=== PATIENT | female | born 1990 | race Hispanic/Latino ===

== ENCOUNTER → 2023-07-08 | Emergency (ER) | payer OTHER ==
[~2023-07-08] MED LIST: FAMOTIDINE 20 MG/2 ML VIAL IV ONE; NA CHLORIDE 0.9% 1,000 ML ONE; ONDANSETRON 4 MG/2 ML VIAL ONE
[2023-07-08 16:12] LABS: Absolute Basophils 0.1 K/uL (0-0.5); Absolute Lymphocytes (CBC) 1.5 K/uL (0.7-4.9); Absolute Neutrophil 18.3 K/uL (1.8-8.0); Basophils % 0.3 % (0-1.3); Hematocrit 45.1 % (36.0-45.0); Hemoglobin 14.8 g/dL (12.0-15.0); Lymphocytes % 7.2 % (15.3-44.8); MCH 29.3 pg (27.0-35.0); MCHC 32.9 g/dL (32.0-36.0); MCV 89.1 fL (80-100); MPV 8.6 fL (7.6-11.3); Monocytes % 4.6 % (3.3-12.3); Neutrophils % 87.9 % (41.7-73.7); Platelets 366 thou/uL (152-406); RBC Red Blood Cell Count 5.06 M/uL (3.86-4.86); Red Cell Distribution Width 13.1 % (12.1-15.2)
[2023-07-08 16:23] LABS: SARS-CoV-2 Antigen CONTROL BLUE LINE VIS/BG OK; SARS-CoV-2 Antigen Rapid Res Negative (Negative)
[2023-07-08 16:28] LABS: Albumin 4.1 g/dL (3.4-5.0); Bilirubin Total 0.4 mg/dL (0.2-1.0); Globulin 4.1 g/dL (2.3-3.5); Protein, Total 8.2 g/dL (6.4-8.2)
--- NOTE | 2023-07-08 17:49 | RAD REPORT ---
EXAM DESCRIPTION: CTAbdomen Pelvis W Contrast - 07/08/2023 5:38 pm CLINICAL HISTORY: ABD PAIN COMPARISON: No comparisons TECHNIQUE: CT of the abdomen and pelvis was performed. All CT scans are performed using dose optimization technique as appropriate and may include automated exposure control or mA/KV adjustment according to patient size. FINDINGS: Lower chest: Small hiatal hernia. Liver: No acute abnormality or suspicious lesions. Biliary: No biliary ductal dilatation. Stomach: No significant focal abnormality. Duodenum: No significant focal abnormality. Pancreas: No significant abnormality. Spleen: No significant abnormality. Adrenal: No suspicious lesions. Kidney/ureter: No hydronephrosis. No renal calculi. Retroperitoneum: No retroperitoneal adenopathy. Vascular: No aneurysm. Bowel: No significant focal abnormality. Normal appendix. Peritoneum: Trace pelvic free fluid. This is likely physiologic. Mild soft tissue thickening at the u mbilicus. Bladder: Grossly unremarkable. Reproductive: Corpus luteal cyst in the right ovary. Bones: No acute fracture. Other: n/a IMPRESSION: No acute intra-abdominal or pelvic finding.
[2023-07-08 18:24] LABS: Sqamous Epithelial <5 /HPF (None Seen); Urine Bacteria None Seen /HPF (<20); Urine Bilirubin NEGATIVE (Negative); Urine Blood Negative (Negative); Urine Clarity Clear (Clear); Urine Color Colorless (Yellow); Urine Culture Reflex Order NOT NEEDED; Urine Glucose NEGATIVE (Negative); Urine Ketones TRACE (Negative); Urine Microscopic Reflex YN ORDER UMIC; Urine Mucus Slight /HPF (None Seen); Urine Nitrite NEGATIVE (Negative); Urine Protein NEGATIVE (Negative); Urine Urobilinogen Normal (Normal); Urine WBC <5 /HPF (<5); Urine Yeast (Budding) Trace /HPF (None Seen); Urine pH 5.5 (5.0-7.0)
[2023-07-08 18:30] LABS: Specific Gravity > 1.030 (1.005-1.030)
--- NOTE | 2023-07-08 18:36 | EDPHYS ---
Physician Documentation [facility] Name: Janis Ortiz Age: 32 yrs Sex: Female : 1990 Arrival Date: 07/08/2023 Time: 15:32 Bed 5 Private MD: ED Physician Marvin Holbrook HPI: 07/07 15:41 This 32 yrs old Female presents to ER via Wheelchair with complaints of jh7 Vomiting. 15:41 The patient presents to the emergency department with nausea, vomiting. Onset: The jh7 symptoms/episode began/occurred 1 day(s) ago. Possible causes: CBD Gummies. Associated signs and symptoms: Pertinent positives: diarrhea, nausea, vomiting, Pertinent negatives: abdominal pain, constipation, hematuria, vaginal discharge. no PMH. Historical: - Allergies: 15:43 No Known Allergies; ko1 - Home Meds: 15:43 None [Active]; ko1 - PMHx: 15:43 None; ko1 - PSHx: 15:43 None; ko1 - Immunization history:: Adult Immunizations unknown. - Social history:: Smoking status: Patient denies any tobacco usage or history of. ROS: 15:41 Constitutional: Negative for fever, chills, and weight loss, Eyes: Negative for injury, jh7 pain, redness, and discharge, Neck: Negative for injury, pain, and swelling, Cardiovascular: Negative for chest pain, palpitations, and edema, Respiratory: Negative for shortness of breath, cough, wheezing, and pleuritic chest pain, Back: Negative for injury and pain, MS/Extremity: Negative for injury and deformity, Skin: Negative for injury, rash, and discoloration, Neuro: Negative for headache, weakness, numbness, tingling, and seizure, 15:41 Abdomen/GI: Positive for nausea, vomiting, and diarrhea, Negative for abdominal pain, black/tarry stool, rectal pain, 15:41 All other systems are negative, Exam: 15:41 Head/Face: Normocephalic, atraumatic. Eyes: Pupils equal round and reactive to light, jh7 extra-ocular motions intact. Lids and lashes normal. Conjunctiva and sclera are non-icteric and not injected. Cornea within normal limits. Periorbital areas with no swelling, redness, or edema. Neck: Trachea midline, no thyromegaly or masses palpated, and no cervical lymphadenopathy. Supple, full range of motion without nuchal rigidity, or vertebral point tenderness. No Meningismus. Cardiovascular: Regular rate and rhythm with a normal S1 and S2. No gallops, murmurs, or rubs. Normal PMI, no JVD. No pulse deficits. Respiratory: Lungs have equal breath sounds bilaterally, clear to auscultation and percussion. No rales, rhonchi or wheezes noted. No increased work of breathing, no retractions or nasal flaring. Abdomen/GI: Soft, non-tender, with normal bowel sounds. No distension or tympany. No guarding or rebound. No evidence of tenderness throughout. Back: No spinal tenderness. No costovertebral tenderness. Full range of motion. MS/ Extremity: Pulses equal, no cyanosis. Neurovascular intact. Full, normal range of motion. Neuro: Awake and alert, GCS 15, oriented to person, place, time, and situation. Motor strength 5/5 in all extremities. Sensory grossly intact. Normal gait. 15:41 Constitutional: The patient appears alert, awake, obviously ill, 15:41 Skin: Appearance: Color: pale, Vital Signs: 15:41 BP 102 / 58; Pulse 129; Resp 17; Temp 97.3; Pulse Ox 98% on R/A; ko1 16:06 BP 109 / 65; Pulse 111; Resp 16; Pulse Ox 95% on R/A; nj1 17:02 BP 110 / 58; Pulse 103; Resp 16; Pulse Ox 97% on R/A; nj1 19:21 BP 121 / 64; Pulse 104; Resp 18; Temp 97.5(TE); Pulse Ox 98% on R/A; Pain 0/10; tm6 19:21 Pain Scale: Adult tm6 MDM: 15:37 Patient medically screened. [facility] 18:37 Differential diagnosis: Nonspecific abd pain, gastritis, cholecystitis, appendicitis, jh7 diverticulitis, viral gastroenteritis, gastroenteritis. Data reviewed: vital signs, nurses notes, lab test result(s), radiologic studies, CT scan. Consideration of Admission/Observation Escalation of care including admission/observation considered. Management of patient was discussed with the following: Attending ED physician, Marvin Holbrook. I considered the following discharge prescriptions or medication management in the emergency department Medications were administered in the Emergency Department. See MAR. Historians other than the Patient: Spouse/Significant Other: . Counseling: I had a detailed discussion with the patient and/or guardian regarding the historical points, exam findings, and any diagnostic results supporting the discharge/admit diagnosis, to return to the emergency department if symptoms worsen or persist or if there are any questions or concerns that arise at home. Response to treatment: the patient's symptoms have mildly improved after treatment. ED course: Reviewed all labs and imaging with the patient. She denied any abdominal pain or urinary symptoms. Elevated WBC count likely due to the numerous episodes of vomiting. The patient symptoms mildly improved and she did not vomit throughout her ER stay. Considered admitting under observation for IV fluid therapy, but the patient stated that she felt comfortable going home and would return if symptoms worsened.. 07/07 15:46 Order name: CBC with Diff [facility] 07/07 15:46 Order name: CMP; Complete Time: 17:04 [facility] 07/07 15:46 Order name: Lipase; Complete Time: 17:04 [facility] 07/07 15:46 Order name: Urinalysis w/ reflexes; Complete Time: 18:32 [facility] 07/07 15:47 Order name: Flu; Complete Time: 17:04 [facility] 07/07 15:47 Order name: SARS RAPID; Complete Time: 16:24 [facility] 07/07 16:44 Order name: Test, Serum; Complete Time: 17:28 07/07 19:05 Order name: CBC Smear Scan [facility] 07/07 16:16 Order name: CT Abd/Pelvis - IV Contrast Only; Complete Time: 17:52 [facility] 07/07 15:46 Order name: IV Saline Lock; Complete Time: 16:00 [facility] 07/07 15:46 Order name: Labs collected and sent; Complete Time: 16:00 [facility] 07/07 18:30 Order name: PO challenge; Complete Time: 19:21 [facility] Administered Medications: 15:58 Drug: NS 0.9% IV 1000 ml IV at 1 bolus Per protocol; 1000 mL bolus Route: IV; Rate: 1 nj1 bolus; Site: right antecubital; 15:59 Drug: Ondansetron IVP 4 mg IVP once; over 2 minutes Route: IVP; Site: right antecubital;nj1 16:01 Drug: Famotidine IVP 20 mg IVP once; dilute with 10 mL 0.9% NaCl; give over 2 minutes nj1 Route: IVP; Site: right antecubital; 18:20 Drug: Ondansetron IVP 4 mg IVP once; over 2 minutes Route: IVP; Site: right antecubital;nj1 Disposition Summary: 07/08/23 18:35 Discharge Ordered Notes: Location: Home [facility] Problem: new [facility] Symptoms: have improved [facility] Condition: Stable [facility] Diagnosis - Nausea with vomiting, unspecified [facility] - Diarrhea, unspecified [facility] - Dehydration [facility] Followup: [facility] - With: Private Physician - When: 2 - 3 days - Reason: Recheck today's complaints Discharge Instructions: - Discharge Summary Sheet [facility] - Dehydration, Adult [facility] - Diarrhea, Adult [facility] - Nausea and Vomiting, Adult [facility] Forms: - Medication Reconciliation Form [facility] - Thank You Letter [facility] - Patient Portal Instructions [facility] - Leadership Thank You Letter [facility] Prescriptions: - ondansetron 4 mg Oral Tablet,disintegrating - take 1 tablet ORAL route every 4-6 hours As needed; 20 tablet; Refills: 0, [facility] Product Selection Permitted - Levsin 0.125 mg Oral Tablet - take 1 tablet ORAL route every 8 hours; 30 tablet; Refills: 0, Product [facility] Selection Permitted - promethazine 25 mg Oral Tablet - take 1 tablet ORAL route every 6 hours As needed; 20 tablet; Refills: 0, [facility] Product Selection Permitted Signatures: Dispatcher [employer] EDJanis Lazcano, STRAP CUTTER STRAP CUTTER [facility] Nan Gaspar RN RN ko1 Veda Bell RN RN nj1 Corrections: (The following items were deleted from the chart) 16:57 15:47 Test, Urine+.LAB.BRZ ordered. EDMS EDMS
--- NOTE | 2023-07-08 18:36 | ER ---
Nurse's Notes [facility] Name: Janis Ortiz Age: 32 yrs Sex: Female : 1990 Arrival Date: 07/08/2023 Time: 15:32 Bed 5 Private MD: Diagnosis: Nausea with vomiting, unspecified;Diarrhea, unspecified;Dehydration Presentation: 07/07 15:41 Chief complaint: Patient states: n/v since this morning, took 2 different cbd gummies ko1 last night. Has thrown up 3 times. Coronavirus screen: At this time, the client does not indicate any symptoms associated with coronavirus-19. Ebola Screen: No symptoms or risks identified at this time. Initial Sepsis Screen: Does the patient meet any 2 criteria? No. Patient's initial sepsis screen is negative. Does the patient have a suspected source of infection? No. Patient's initial sepsis screen is negative. Risk Assessment: Do you want to hurt yourself or someone else? Patient reports no desire to harm self or others. Onset of symptoms was July 08, 2023. 15:41 Method Of Arrival: Wheelchair ko1 15:41 Acuity: ARVIND 3 ko1 Triage Assessment: 15:43 General: Appears ill, Behavior is calm, cooperative, appropriate for age. Pain: Denies ko1 pain. GI: Reports nausea, vomiting. Historical: - Allergies: 15:43 No Known Allergies; ko1 - Home Meds: 15:43 None [Active]; ko1 - PMHx: 15:43 None; ko1 - PSHx: 15:43 None; ko1 - Immunization history:: Adult Immunizations unknown. - Social history:: Smoking status: Patient denies any tobacco usage or history of. Screenin:06 [facility] ED Fall Risk Assessment (Adult) History of falling in the last 3 months, nj1 including since admission No falls in past 3 months (0 pts) Confusion or Disorientation No (0 pts) Intoxicated or Sedated No (0 pts) Impaired Gait No (0 pts) Mobility Assist Device Used No (0 pt) Altered Elimination No (0 pt) Score/Fall Risk Level 0 - 2 = Low Risk Oriented to surroundings, Maintained a safe environment, Hourly rounding (assess needs \T\ fall precautionary measures) done. Abuse screen: Denies threats or abuse. Denies injuries from another. Nutritional screening: No deficits noted. Tuberculosis screening: No symptoms or risk factors identified. Assessment: 16:00 General: Appears in no apparent distress. ill, Behavior is calm, cooperative, nj1 appropriate for age. Pain: Denies pain. Neuro: Level of Consciousness is obeys commands, Drowsy. Oriented to person, place, time, situation, Reports Malaise. Cardiovascular: Patient's skin is warm and dry. Respiratory: Airway is patent Respiratory effort is even, unlabored. GI: Reports diarrhea, nausea, vomiting. 17:03 Reassessment: Patient appears in no apparent distress at this time. Patient and/or nj1 family updated on plan of care and expected duration. Pain level reassessed. pt resting/sleeping. 18:00 Reassessment: Patient appears in no apparent distress at this time. Patient and/or nj1 family updated on plan of care and expected duration. Pain level reassessed. Patient is alert, oriented x 3, equal unlabored respirations, skin warm/dry/pink. 19:21 Reassessment: Patient and/or family updated on plan of care and expected duration. Pain tm6 level reassessed. Patient is alert, oriented x 3, equal unlabored respirations, skin warm/dry/pink. Patient states feeling better. Vital Signs: 15:41 BP 102 / 58; Pulse 129; Resp 17; Temp 97.3; Pulse Ox 98% on R/A; ko1 16:06 BP 109 / 65; Pulse 111; Resp 16; Pulse Ox 95% on R/A; nj1 17:02 BP 110 / 58; Pulse 103; Resp 16; Pulse Ox 97% on R/A; nj1 19:21 BP 121 / 64; Pulse 104; Resp 18; Temp 97.5(TE); Pulse Ox 98% on R/A; Pain 0/10; tm6 19:21 Pain Scale: Adult tm6 ED Course: 15:36 Patient arrived in ED. rg4 15:37 [facility] FNP [facility] jh7 15:37 Marvin Holbrook MD is Attending Physician. jh7 15:43 Triage completed. ko1 15:43 Arm band placed on right wrist. Patient placed in an exam room, on a stretcher, on ko1 personnel monitor, on pulse oximetry, Patient notified of wait time. 15:48 Veda Bell, RN is Primary Nurse. nj1 16:00 Client placed on continuous cardiac and pulse oximetry monitoring. NIBP monitoring nj1 applied. 16:00 CBC with Diff Sent. jg11 16:00 CMP Sent. jg11 16:00 Lipase Sent. jg11 16:00 Initial lab(s) drawn, by me, sent to lab. Inserted saline lock: 20 gauge in right j1 antecubital area, using aseptic technique. Blood collected. 16:07 Patient has correct armband on for positive identification. Bed in low position. Call nj1 light in reach. Adult w/ patient. Provided Education on: call light, fall precautions. 16:30 Radiology exam delayed due to test not completed at this time. mw3 17:40 CT Abd/Pelvis - IV Contrast Only In Process Unspecified. EDMS 19:22 No provider procedures requiring assistance completed. IV discontinued, intact, tm6 bleeding controlled, No redness/swelling at site. Pressure dressing applied. Administered Medications: 15:58 Drug: NS 0.9% IV 1000 ml IV at 1 bolus Per protocol; 1000 mL bolus Route: IV; Rate: 1 nj1 bolus; Site: right antecubital; 15:59 Drug: Ondansetron IVP 4 mg IVP once; over 2 minutes Route: IVP; Site: right antecubital;nj1 16:01 Drug: Famotidine IVP 20 mg IVP once; dilute with 10 mL 0.9% NaCl; give over 2 minutes nj1 Route: IVP; Site: right antecubital; 18:20 Drug: Ondansetron IVP 4 mg IVP once; over 2 minutes Route: IVP; Site: right antecubital;nj1 Medication: 19:22 VIS not applicable for this client. tm6 Outcome: 18:35 Discharge ordered by . jh7 19:22 Discharged to home ambulatory, with family, tm6 19:22 Condition: stable 19:22 Discharge instructions given to patient, family, Instructed on discharge instructions, follow up and referral plans. medication usage, Demonstrated understanding of instructions, follow-up care, medications, Prescriptions given X 3, 19:22 Patient left the ED. tm6 Signatures: Dispatcher [employer] EDMS Susan Solomon rg4 Isa Hameed mw3 Janis Vargas, COAT EXAMINER COAT EXAMINER 7 Nan Gaspar, RN RN ko1 Veda Bell, RN RN nj1 Chiki Castle, RN RN tm6 Redd Montemayor jg11
[2023-07-08 19:04] LABS: Blood Morphology Comment NOT SEEN (NOT SEEN); Platelet Estimate ADEQ; White Blood Cell Scan OK (OK)
[2023-07-08 19:43] VITALS: BP 121/64; TEMP 97.5; O2SAT 98
== END ==
LOC: ER 15:32
DX: E86.0 Dehydration (principal); R19.7 Diarrhea, unspecified; Z11.52 Encounter for screening for COVID-19
CPT/HCPCS: 85025; 81001; 36415; 84703; 83690; 80053; 87804 ×2; 74177; 96375; 96374; 99284; 87811; Q9967; J2405 ×2; J7030